=== PATIENT | female | born 1970 | race Caucasian/White ===

== ENCOUNTER → 2017-07-07 | Outpatient (CLI) | payer BC ==
--- NOTE | 2017-07-10 11:57 | MM ---
Reason for exam: screening (asymptomatic). Last mammogram was performed 1 year ago. History: Family history of breast cancer in maternal cousin. Took hormonal contraceptives for 5 years. Physical Findings: A clinical breast exam by your physician is recommended on an annual basis and results should be correlated with mammographic findings. MG Screening Mammo w CAD Bilateral CC and MLO view(s) were taken. Prior study comparison: June 24, 2016, bilateral MG screening mammo w CAD. June 23, 2015, bilateral MG screening mammo w CAD. There are scattered fibroglandular densities. Asymmetric breast tissue upper outer right breast is stable. No significant changes when compared with prior studies. ASSESSMENT: Benign, BI-RAD 2 RECOMMENDATION: Routine screening mammogram of both breasts in 1 year.
== END | disposition home or self-care (01) ==
LOC: RADMAMWWP 08:35
PROVIDERS: ATTEND Family Medicine
DX: Z12.31 Encounter for screening mammogram for malignant neoplasm of breast (principal)
CPT/HCPCS: 77067

== ENCOUNTER 2017-10-22 15:02 | Observation (INO) | payer BC ==
[2017-10-22] MEDS ORDERED: ASPIRIN 81 MG PO STA (15:27)
[2017-10-22] MEDS ORDERED: KETOROLAC 30 MG/ML 1 ML VIAL IVP STA (15:28)
--- NOTE | 2017-10-22 15:35 | ED ---
Chest Pain HPI - General Chief Complaint: Chest Pain Stated Complaint: Chest Pain Time Seen by Provider: 10/22/17 15:10 Source: patient, RN notes reviewed Mode of arrival: wheelchair Limitations: no limitations - History of Present Illness Initial Comments: This is a 47-year-old female who states she had the onset of chest pain yesterday. He states it increased morning she states goes across her chest and she feels like some tightness across her chest as well as into her neck 4-510 severity she is here worse with supine positioning better with upright positioning no fevers chills nausea vomiting sweats or other symptoms no cough or phlegm production. Patient is a nonsmoker. She does state there is a family history of heart disease but using a later age group. She additionally states there is a fullness in her ears. No other symptoms reported she does state that she was at a of a mother of one of her best friends. She also is going to be moving out of state MD Complaint: chest pain - Related Data Home Medications Medication Instructions Recorded Confirmed No Known Home Medications [No 06/29/15 10/22/17 Known Home Medications] Allergies Allergy/AdvReac Type Severity Reaction Status Date / Time No Known Allergies Allergy Verified 10/22/17 15:09 Review of Systems ROS Statement: Those systems with pertinent positive or pertinent negative responses have been documented in the HPI. ROS Other: All systems not noted in ROS Statement are negative. EKG Findings - EKG Results: EKG: interpreted by RUBENS, sinus rhythm (Sinus rhythm rate 70. Interval 144 QRS 90 QT since QTC 34/414 right axis no acute ST-T wave changes seen) Past Medical History Past Medical History: Hypertension Additional Past Medical History / Comment(s): Fractured fibula, History of Any Multi-Drug Resistant Organisms: None Reported Past Surgical History: No Surgical Hx Reported Additional Past Surgical History / Comment(s): Plate in left arm Past Anesthesia/Blood Transfusion Reactions: No Reported Reaction Past Psychological History: No Psychological Hx Reported Smoking Status: Never smoker Past Alcohol Use History: None Reported Past Drug Use History: None Reported General Exam - General Exam Comments Initial Comments: This is a well-developed well-nourished awake alert oriented 3 female Limitations: no limitations General appearance: alert, anxious Head exam: Present: atraumatic, normocephalic, normal inspection Eye exam: Present: normal appearance, PERRL, EOMI. Absent: scleral icterus, conjunctival injection, periorbital swelling ENT exam: Present: normal exam, mucous membranes moist Neck exam: Present: normal inspection. Absent: tenderness, meningismus, lymphadenopathy Respiratory exam: Present: normal lung sounds bilaterally. Absent: respiratory distress, wheezes, rales, rhonchi, stridor Cardiovascular Exam: Present: regular rate, normal rhythm, normal heart sounds. Absent: systolic murmur, diastolic murmur, rubs, gallop, clicks GI/Abdominal exam: Present: soft, normal bowel sounds. Absent: distended, tenderness, guarding, rebound, rigid Extremities exam: Present: normal inspection, full ROM, normal capillary refill. Absent: tenderness, pedal edema, joint swelling, calf tenderness Back exam: Present: normal inspection Neurological exam: Present: alert, oriented X3, CN II-XII intact Psychiatric exam: Present: normal affect, normal mood Skin exam: Present: warm, dry, intact, normal color. Absent: rash Course Vital Signs 10/22/17 10/22/17 15:06 16:04 Temperature 97.0 F L Pulse Rate 99 80 Respiratory 18 17 Rate Blood Pressure 146/83 127/81 O2 Sat by Pulse 100 98 Oximetry Chest Pain MDM - MDM Patient initially EKG and labs are within normal limits except for the elevated lipase. Patient does not drink alcohol has been on no new medications and has not been ill recently she still having recurrent episodes pain she'll be admitted for a cardiac workup. Disposition Clinical Impression: Chest pain, Unstable angina pectoris Disposition: ADMITTED IP TO THIS HOSP Condition: Stable Referrals: Anne Harley III, MD [Primary Care Provider] - 1-2 days
[2017-10-22 15:43] LABS: Basophils % (A) 0 %; Eosinophils # (A) 0.2 k/uL (0-0.7); Eosinophils % (A) 2 %; HCT 42.7 % (34.0-46.0); HGB 14.9 gm/dL (11.4-16.0); Lymphocytes # (A) 1.6 k/uL (1.0-4.8); Lymphocytes % (A) 15 %; MCH 30.3 pg (25.0-35.0); MCHC 34.9 g/dL (31.0-37.0); Mean Platelet Volume 8.3; Monocytes # (A) 0.5 k/uL (0-1.0); Monocytes % (A) 4 %; Neutrophils % (A) 77 %; Platelet Count 230 k/uL (150-450); RBC 4.91 m/uL (3.80-5.40); RDW 12.2 % (11.5-15.5); WBC 10.4 k/uL (3.8-10.6)
[2017-10-22 15:52] LABS: ALT 25 U/L (9-52); AST 16 U/L (14-36); Albumin 4.3 g/dL (3.5-5.0); Alkaline Phosphatase 68 U/L (38-126); Amylase 140 U/L (30-110); Anion Gap 14 mmol/L; Blood Urea Nitrogen 12 mg/dL (7-17); Calcium 10.1 mg/dL (8.4-10.2); Carbon Dioxide 23 mmol/L (22-30); Chloride 105 mmol/L (98-107); Glucose 100 mg/dL (74-99); Lipase 384 U/L (23-300); Magnesium 1.7 mg/dL (1.6-2.3); Sodium 142 mmol/L (137-145); Total Bilirubin 0.7 mg/dL (0.2-1.3); Total Protein 6.5 g/dL (6.3-8.2)
[2017-10-22 15:56] LABS: D-Dimer 0.21 mg/L FEU (<0.60); Partial Thromboplastin Time 22.7 sec (22.0-30.0); Prothrombin Time 10.2 sec (9.0-12.0)
--- NOTE | 2017-10-22 16:01 | XR ---
EXAMINATION TYPE: XR chest 2V DATE OF EXAM: 10/22/2017 COMPARISON: June 29, 2015 HISTORY: Chest pain for 2 days TECHNIQUE: Frontal and lateral views of the chest are obtained. FINDINGS: There is no focal air space opacity, pleural effusion, or pneumothorax seen. The cardiac silhouette size is within normal limits. The osseous structures are intact. IMPRESSION: No acute cardiopulmonary process.
[2017-10-22 16:03] LABS: Creatine Kinase 48 U/L (30-135)
[2017-10-22 16:13] LABS: Creatine Kinase MB 0.6 ng/mL (0.0-2.4)
[2017-10-22 16:17] LABS: Troponin I <0.012 ng/mL (0.000-0.034)
[2017-10-22] MEDS ORDERED: HEPARIN SODIUM,PORCINE 5,000 UNIT/ML 1 ML VIAL IV ONE (16:56)
[2017-10-22] MEDS ORDERED: NITROGLYCERIN SL TABS 0.4 MG TAB SUBLINGUAL PRN (16:56)
[2017-10-22] MEDS ORDERED: SODIUM CHLORIDE 0.9% 1,000 ML IV SCH (17:00)
[2017-10-22] MEDS ORDERED: HEPARIN SOD,PORK IN 0.45% NACL 25,000 UNIT in 0.45% NACL 1 500ML.BAG IV SCH (17:00)
[2017-10-22 19:03] VITALS: BMI 30.5
[2017-10-22] MEDS: NITROGLYCERIN OINT 1 INCH/GM PACKET TOPICAL SCH (21:31)
[2017-10-22] MEDS: ACETAMINOPHEN TAB 325 MG TAB PO PRN (21:37)
[2017-10-22 21:59] LABS: Creatine Kinase 42 U/L (30-135)
[2017-10-22 22:11] LABS: Creatine Kinase MB 0.4 ng/mL (0.0-2.4); Troponin I <0.012 ng/mL (0.000-0.034)
[2017-10-22] MEDS ORDERED: MELATONIN 3 MG TABLET PO SCH (23:30)
[2017-10-23] MEDS: NITROGLYCERIN OINT 1 INCH/GM PACKET TOPICAL SCH ×2 (00:04→05:25)
[2017-10-23 04:35] LABS: Creatine Kinase 36 U/L (30-135)
[2017-10-23 04:49] LABS: Creatine Kinase MB 0.4 ng/mL (0.0-2.4); Troponin I <0.012 ng/mL (0.000-0.034)
[2017-10-23 06:11] LABS: Basophils % (A) 0 %; Eosinophils # (A) 0.2 k/uL (0-0.7); Eosinophils % (A) 2 %; HCT 38.1 % (34.0-46.0); HGB 13.5 gm/dL (11.4-16.0); Lymphocytes # (A) 1.6 k/uL (1.0-4.8); Lymphocytes % (A) 22 %; MCH 31.3 pg (25.0-35.0); MCHC 35.4 g/dL (31.0-37.0); MCV 88.4 fL (80.0-100.0); Mean Platelet Volume 8.3; Monocytes # (A) 0.4 k/uL (0-1.0); Monocytes % (A) 5 %; Neutrophils # (A) 5.2 k/uL (1.3-7.7); Neutrophils % (A) 70 %; Platelet Count 182 k/uL (150-450); RDW 12.3 % (11.5-15.5); WBC 7.4 k/uL (3.8-10.6)
[2017-10-23 06:24] LABS: Glucose 99 mg/dL (74-99); Total Protein 5.5 g/dL (6.3-8.2)
[2017-10-23 06:35] LABS: ALT 17 U/L (9-52); AST 19 U/L (14-36); Albumin 3.4 g/dL (3.5-5.0); Alkaline Phosphatase 57 U/L (38-126); Amylase 87 U/L (30-110); Anion Gap 12 mmol/L; Blood Urea Nitrogen 12 mg/dL (7-17); Calcium 8.9 mg/dL (8.4-10.2); Carbon Dioxide 21 mmol/L (22-30); Chloride 108 mmol/L (98-107); Cholesterol 136 mg/dL (<200); HDL Cholesterol 61 mg/dL (40-60); LDL Cholesterol,Calculated 61 mg/dL (0-99); Lipase 179 U/L (23-300); Potassium 3.8 mmol/L (3.5-5.1); Sodium 141 mmol/L (137-145); Triglycerides 71 mg/dL (<150)
[2017-10-23 08:10] VITALS: RESP 16
[2017-10-23] MEDS ORDERED: ASPIRIN 325 MG TAB PO SCH (09:00)
[2017-10-23] MEDS ORDERED: ASPIRIN 81 MG PO SCH (09:05)
[2017-10-23] MEDS: ACETAMINOPHEN TAB 325 MG TAB PO PRN (10:12)
--- NOTE | 2017-10-23 12:30 | P.CRDCN ---
History of Present Illness Consult date: 10/23/17 History of present illness: Mrs. Potts is a pleasant 47-year-old female past medical history significant for hypertension while 9 years ago that has resolved. She denies history of coronary artery disease, dyslipidemia, diabetes mellitus or tobacco use. Her father had a bypass of 5-vessels in his early 60s. We have been asked to see her in consultation for chest pain. She states since Monday she has experienced multiple episodes of a squeezing sensation in the mid- sternal region that feels like something is grabbing her heart momentarily and letting do. She denies shortness of breath but feels as if she can't take a very deep breath. After the initial squeezing sensation subsides she gets a discomfort up into her neck on both sides radiating up into her head. She denies palpitations, nausea, vomiting, diaphoresis, dizziness or radiation to the arms, back or jaw. She states this has happened in the past and is typically related to a stressful event. This weekend was particularly stressful for her. EKG reveals sinus mechanism with non-specific ST abnormalities with T-wave inversions inferiorly. Telemetry tracings have been unremarkable. Chest xray is negative for an acute cardiopulmonary process. Laboratory data reviewed, hemoglobin 13.5, platelets 182, d-dimer 0.21, sodium 141, potassium 3.8, magnesium 1.7, creatinine 0.77, cardiac enzymes negative 3 , LDL 61, HDL 61. She takes no daily medications. Review of Systems At the time of my exam: CONSTITUTIONAL: Denies fever. Denies chills. EYES: Denies blurred vision. Denies vision changes. Denies eye pain. EARS, NOSE, MOUTH & THROAT: Denies headache. Denies sore throat. Denies ear pain. CARDIOVASCULAR: Denies chest pain. Denies shortness of breath. Denies orthopnea. Denies PND. Denies palpitations. RESPIRATORY: Denies cough. GASTROINTESTINAL: Denies abdominal pain. Denies diarrhea. Denies constipation. Denies nausea. Denies vomiting. MUSCULOSKELETAL: Denies myalgias. INTEGUMENTARY: Denies pruitis. Denies rash. NEUROLOGIC: Denies numbness. Denies tingling. Denies weakness. PSYCHIATRIC: Denies anxiety. Denies depression. ENDOCRINE: Denies fatigue. Denies weight change. Denies polydipsia. Denies polyurina. GENITOURINARY: Denies burning, hematuria or urgency with micturation. HEMATOLOGIC: Denies history of anemia. Denies bleeding. Past Medical History Past Medical History: Hypertension Additional Past Medical History / Comment(s): Fractured fibula, History of Any Multi-Drug Resistant Organisms: None Reported Past Surgical History: No Surgical Hx Reported Additional Past Surgical History / Comment(s): Plate in left arm and taken out. Past Anesthesia/Blood Transfusion Reactions: No Reported Reaction Past Psychological History: No Psychological Hx Reported Smoking Status: Never smoker Past Alcohol Use History: None Reported Past Drug Use History: None Reported Medications and Allergies Home Medications Medication Instructions Recorded Confirmed Type Qxahnei-Lbsg-Mvpn [id number] 1 tab PO Q4HR PRN 10/22/17 10/22/17 History [Excedrin] Ibuprofen [Motrin Ib] 400 mg PO Q6H PRN 10/22/17 10/22/17 History Allergies Allergy/AdvReac Type Severity Reaction Status Date / Time No Known Allergies Allergy Verified 10/22/17 17:33 Physical Exam Vitals: Vital Signs Temp Pulse Pulse Resp BP BP Pulse Ox 10/23/17 08:00 97.9 F 79 16 118/74 97 10/23/17 04:00 98.0 F 58 L 15 117/72 95 10/23/17 00:00 98.4 F 68 16 117/71 98 10/22/17 20:00 98.2 F 51 L 18 128/82 10/22/17 18:40 98.6 F 85 16 141/82 96 10/22/17 17:49 97.2 F L 78 17 143/90 100 10/22/17 16:04 80 17 127/81 98 10/22/17 15:06 97.0 F L 99 18 146/83 100 Intake and Output 10/22/17 10/23/17 10/23/17 22:59 06:59 14:59 Intake Total 118.548 Balance 118.548 Intake: Intake, IV Titration 118.548 Amount Heparin Sod,Pork in 0.45% 118.548 NaCl 25,000 unit In 0.45 % NaCl 1 500ml.bag @ 11.3 UNITS/KG/HR 19.98 mls/hr IV .Q24H [facility] Rx#: [id number] Other: Voiding Method Toilet Toilet # Voids 3 Weight 88.451 kg Blood pressure 117/72 heart rate 68 afebrile maintaining oxygen saturation on room air GENERAL: This is a 47-year-old female in no apparent distress at the time of my examination. HEENT: Head is atraumatic, normocephalic. Pupils are equal, round. Sclerae anicteric. Conjunctivae are clear. Mucous membranes of the mouth are moist. Neck is supple. There is no jugular venous distention. No carotid bruit is heard. LUNGS: Clear to auscultation no wheezes, rales or rhonchi. No chest wall tenderness is noted on palpation or with deep breathing. HEART: Regular rate and rhythm without murmurs, rubs or gallops. S1 and S2 heard. ABDOMEN: Soft, nontender. Bowel sounds are heard. No organomegaly noted. EXTREMITIES: No evidence of peripheral edema and no calf tenderness noted. VASCULAR: Radial and dorsalis pedis pulses palpated, no evidence of clubbing. NEUROLOGIC: Patient is awake, alert and oriented x3. Results 10/23/17 05:56 10/23/17 05:56 Cardiac Enzymes 10/22/17 10/22/17 10/22/17 Range/Units 15:33 15:33 21:11 AST 16 (14-36) U/L CK-MB (CK-2) 0.6 0.4 (0.0-2.4) ng/mL Troponin I <0.012 <0.012 (0.000-0.034) ng/mL 10/23/17 10/23/17 Range/Units 03:52 05:56 AST 19 (14-36) U/L CK-MB (CK-2) 0.4 (0.0-2.4) ng/mL Troponin I <0.012 (0.000-0.034) ng/mL Coagulation 10/22/17 10/22/17 10/23/17 Range/Units 15:33 22:58 05:56 PT 10.2 (9.0-12.0) sec APTT 22.7 43.3 H 50.1 H (22.0-30.0) sec Lipids 10/23/17 Range/Units 05:56 Triglycerides 71 (<150) mg/dL Cholesterol 136 (<200) mg/dL HDL Cholesterol 61 H (40-60) mg/dL CBC 10/22/17 10/23/17 Range/Units 15:33 05:56 WBC 10.4 7.4 (3.8-10.6) k/uL RBC 4.91 4.30 (3.80-5.40) m/uL Hgb 14.9 13.5 (11.4-16.0) gm/dL Hct 42.7 38.1 (34.0-46.0) % Plt Count 230 182 (150-450) k/uL Comprehensive Metabolic Panel 10/22/17 10/23/17 Range/Units 15:33 05:56 Sodium 142 141 (137-145) mmol/L Potassium 4.0 3.8 (3.5-5.1) mmol/L Chloride 105 108 H (98-107) mmol/L Carbon Dioxide 23 21 L (22-30) mmol/L BUN 12 12 (7-17) mg/dL Creatinine 0.81 0.77 (0.52-1.04) mg/dL Glucose 100 H 99 (74-99) mg/dL Calcium 10.1 8.9 (8.4-10.2) mg/dL AST 16 19 (14-36) U/L ALT 25 17 (9-52) U/L Alkaline Phosphatase 68 57 (38-126) U/L Total Protein 6.5 5.5 L (6.3-8.2) g/dL Albumin 4.3 3.4 L (3.5-5.0) g/dL Current Medications Generic Name Dose Route Start Last Admin Trade Name Freq PRN Reason Stop Dose Admin Acetaminophen 650 mg 10/22/17 21:31 10/22/17 21:37 Tylenol Tab PO 650 mg Q4HR PRN Administration Fever and/ or Mild Pain Aspirin 325 mg 10/23/17 09:00 Aspirin PO DAILY GREGG Heparin Sodium/Sodium Chloride 500 mls @ 19.98 mls/hr 10/22/17 17:00 23:41 25,000 unit/ Sodium Chloride IV 13.34 units/kg/hr .Q24H [facility] 23.6 mls/hr Protocol Titration 11.3 UNITS/KG/HR Sodium Chloride 1,000 mls @ 20 mls/hr 10/22/17 17:00 10/22/17 17:42 Saline 0.9% IV 20 mls/hr .Q24H [facility]GG Administration Melatonin 6 mg 10/22/17 23:30 10/23/17 00:02 Melatonin PO 6 mg HS GREGG Administration Nitroglycerin 1 inch 10/22/17 18:00 10/23/17 05:25 Nitro-Bid Oint TOPICAL Not Given Q6HR GREGG Nitroglycerin 0.4 mg 10/22/17 16:56 Nitrostat SUBLINGUAL Q5M PRN Chest Pain Intake and Output 10/22/17 10/23/17 10/23/17 22:59 06:59 14:59 Intake Total 118.548 Balance 118.548 Intake: Intake, IV Titration 118.548 Amount Heparin Sod,Pork in 0.45% 118.548 NaCl 25,000 unit In 0.45 % NaCl 1 500ml.bag @ 11.3 UNITS/KG/HR 19.98 mls/hr IV .Q24H [facility] Rx#: [id number] Other: Voiding Method Toilet Toilet # Voids 3 Weight 88.451 kg 10/23/17 05:56 10/23/17 05:56 Assessment and Plan Assessment: ASSESSMENT 1. Chest pain, atypical PLAN Discontinue heparin infusion and nitroglycerin. Obtain 2D echocardiogram and doppler study to assess cardiac structure and function. Perform stress echocardiogram to assess for stress induced cardiac ischemia. If stress test is normal she is stable from a cardiac perspective. Thank you kindly for this consultation. Nurse Practitioner note has been reviewed, I agree with a documented findings and plan of care. Patient was seen and examined.
[2017-10-23 12:39] VITALS: BP 117/82; PULSE 71; TEMP 98.1
--- NOTE | 2017-10-23 13:00 | P.DS ---
Providers Date of admission: 10/22/17 16:59 Attending physician: Rosy Hernández Consults: 10/22/17 16:56 Consult Physician Urgent Consulting Provider: Diallo Salmeron Consult Reason/Comments: Chest pain Do you want consulting provider notified?: Yes Primary care physician: [facility] Course: Mrs. Haynes is a 47-year-old female with a past medical history of hypertension coming in with a chief complaint of chest pain. Patient states the chest pain is 5 out of 10 on the left side of the chest with some radiation to the sternum. No associated nausea vomiting diaphoresis. Patient does not have any previous cardiac history. But patient states that she has been having this chest pain on and off and that she had a Holter monitor in the past. She said she didn't ever had a stress test done before. Patient does not have risk factors of family history or smoking. Patient also complains of some neck spasms and tightness that radiates up to the back of her head when she is under stress. She denies having any fever cough chills or rigors. No complaints of any abdominal pain nausea vomiting or diarrhea. She denies having any dysuria or hematuria. No history of recent travel. No history of recent surgeries. No history of starting her on any new medications. Patient denies having any orthopnea PND or lower extremity swelling. She states that her heart rate is usually in 50s to 60s. Today the heart monitor has been showing the heart rate between 90s to 100s but she denies having any palpitations. Patient does have history of disc protrusion in the past and she has numbness on her left lower extremity posterior side for the past 2 years. No acute changes. Patient had serial troponins and EKGs within normal limits. She was evaluated by cardiology services and had a stress test done this morning which has been within normal limits and she was cleared by cardiology to be discharged home. Discussed the results with the patient and she is stable to be discharged home. Suggested that she be off of ibuprofen which can cause some epigastric discomfort. Advised to follow up with her PCP in 2-3 days. DISCHARGE DIAGNOSIS Unstable angina hypertension Elevated amylase and lipase History of lumbar disc disease Patient Condition at Discharge: Stable Plan - Discharge Summary Discharge Rx Participant: Yes New Discharge Prescriptions: New Acetaminophen Tab [Tylenol] 650 mg PO Q4HR PRN tab PRN Reason: Fever and/ or Mild Pain Continue [id number]-Afga [id number] [Excedrin] 1 tab PO Q4HR PRN PRN Reason: Pain Discontinued Ibuprofen [Motrin Ib] 400 mg PO Q6H PRN PRN Reason: Pain Discharge Medication List [id number] [id number] [Excedrin] 1 tab PO Q4HR PRN 10/22/17 [History] Acetaminophen Tab [Tylenol] 650 mg PO Q4HR PRN tab 10/23/17 [Rx] Follow up Appointment(s)/Referral(s): Anne Harley III, MD [Primary Care Provider] - 1-2 days Discharge Disposition: HOME SELF-CARE
--- NOTE | 2017-10-24 00:08 | P.HPIM ---
History of Present Illness H&P Date: 10/22/17 Chief Complaint: Chest pain Mrs. Haynes is a 47-year-old female with a past medical history of hypertension coming in with a chief complaint of chest pain. Patient states the chest pain is 5 out of 10 on the left side of the chest with some radiation to the sternum. No associated nausea vomiting diaphoresis. Patient does not have any previous cardiac history. But patient states that she has been having this chest pain on and off and that she had a Holter monitor in the past. She said she didn't ever had a stress test done before. Patient does not have risk factors of family history or smoking. Patient also complains of some neck spasms and tightness that radiates up to the back of her head when she is under stress. She denies having any fever cough chills or rigors. No complaints of any abdominal pain nausea vomiting or diarrhea. She denies having any dysuria or hematuria. No history of recent travel. No history of recent surgeries. No history of starting her on any new medications. Patient denies having any orthopnea PND or lower extremity swelling. She states that her heart rate is usually in 50s to 60s. Today the heart monitor has been showing the heart rate between 90s to 100s but she denies having any palpitations. Patient does have history of disc protrusion in the past and she has numbness on her left lower extremity posterior side for the past 2 years. No acute changes. Review of Systems REVIEW OF SYSTEMS: PSYCH: Normal psychiatric exam NEURO:No c/o weakness of the extremties, No facial droop, No speech abnormalities. VASCULAR: Peripheral nervous system within the normal limits no edema HEMATOLOGIC: No history of easy bleeding and bruising . No recent infections . RESPIRATORY: No cough, No SOB, No chest discomfort. IMMUNE: No infections INTEGUMENT: no rashes OPHTHALMOLOGIC: No blurry vision and no eye discharge : No dysuria or hematuria BURNER TECHNICIAN: No bleeding PV CARDIAC: As per HPI MUSCULOSKELETAL : No Aches or pains in the joints or muscles. GI: No abdominal pain, Nausea or vomiting. No constipation or diarrhea. Past Medical History Past Medical History: Hypertension Additional Past Medical History / Comment(s): Fractured fibula, History of Any Multi-Drug Resistant Organisms: None Reported Past Surgical History: No Surgical Hx Reported Additional Past Surgical History / Comment(s): Plate in left arm Past Anesthesia/Blood Transfusion Reactions: No Reported Reaction Past Psychological History: No Psychological Hx Reported Smoking Status: Never smoker Past Alcohol Use History: None Reported Past Drug Use History: None Reported Medications and Allergies Home Medications Medication Instructions Recorded Confirmed Type Epveprx-Adqa-Omgo [id number] 1 tab PO Q4HR PRN 10/22/17 10/22/17 History [Excedrin] Ibuprofen [Motrin Ib] 400 mg PO Q6H PRN 10/22/17 10/22/17 History Allergies Allergy/AdvReac Type Severity Reaction Status Date / Time No Known Allergies Allergy Verified 10/22/17 17:33 Physical Exam Vitals: Vital Signs Temp Pulse Resp BP Pulse Ox 10/22/17 17:49 97.2 F L 78 17 143/90 100 10/22/17 16:04 80 17 127/81 98 10/22/17 15:06 97.0 F L 99 18 146/83 100 Intake and Output 10/22/17 10/22/17 10/22/17 06:59 14:59 22:59 Other: Weight 88.451 kg GENERAL EXAM GEN. APPEARANCE: alert, in no apparent distress HEAD EXAM: atraumatic, normocephalic, normal inspection EYE EXAM: normal appearance, PERRL, EOMI. Absent: scleral icterus, conjunctival injection, periorbital swelling ENT EXAM: normal exam, mucous membranes moist NECK EXAM: normal inspection. Absent: tenderness, meningismus, full ROM, lymphadenopathy RESPIRATORY EXAM: normal lung sounds bilaterally. Absent: respiratory distress , wheezes, rales, rhonchi, stridor CARDIOVASCULAR EXAM: regular rate, normal rhythm, normal heart sounds. Absent : systolic murmur, diastolic murmur, rubs, gallop, clicks GI/ABDOMINAL EXAM: soft, normal bowel sounds. Absent: distended, tenderness, guarding, rebound, rigid EXTREMITIES EXAM: normal inspection, full ROM, normal capillary refill. Absent : tenderness, pedal edema, joint swelling, calf tenderness BACK EXAM: normal inspection NEUROLOGICAL EXAM: alert, oriented X3, CN II-XII intact, motor sensory deficit PSYCHIATRIC EXAM: normal affect, normal mood SKIN EXAM: warm, dry, intact, normal color. Absent: rash Results CBC & Chem 7: 10/22/17 15:33 10/22/17 15:33 Labs: Abnormal Lab Results - Last 24 Hours (Table) 10/22/17 10/22/17 Range/Units 15:33 15:33 Neutrophils # 8.0 H (1.3-7.7) k/uL Glucose 100 H (74-99) mg/dL Amylase 140 H (30-110) U/L Lipase 384 H (23-300) U/L Assessment and Plan Plan: ASSESSMENT Unstable angina hypertension Elevated amylase and lipase - unclear etiology Plan: Patient will have serial troponins and EKGs. Patient has been started on IV heparin. We will keep the patient nothing by mouth as it is unclear why she has elevated amylase and lipase. She denies using any new medications and alcohol use. We will repeat the lytes for tomorrow morning. Cardiology services have been consulted. Will follow the patient closely.
--- NOTE | 2017-10-24 11:39 | EST ---
EXERCISE STRESS AGE: 47 SEX: F HT: 67" WT: 195 PROTOCOL: Stress Echo STAGE: III DURATION OF EXERCISE: 9:00 HEART RATE REST: 85 BLOOD PRESSURE REST: 108/68 MAXIMUM HEART RATE ACHIEVED: 170 MAXIMUM BLOOD PRESSURE: 175/76 85% MPHR: 148 100% MPHR: 174 METS: 10.5 INDICATIONS: Chest pain. CLINICAL INFORMATION: STRESS DATA: Pretesting physical examination showed a heart rate of 85, pressure is 108/68 mmHg. Baseline EKG showed sinus mechanism. The patient exercised on the treadmill on Primo protocol for a total of 9 minutes and achieved 10.5 METS with max heart rate was 170, which is about 97% of maximum predicted heart rate. Maximum blood pressure was 175/76 mmHg. Clinically, she did not have any symptoms of chest pain or discomfort. The EKG did not show any significant ST or T-wave abnormalities consistent with ischemia. ECHOCARDIOGRAM IMAGES: On echocardiogram images from parasternal long axis view, parasternal short axis view, apical 4 chambers, and apical 2 chamber view were obtained as the baseline images, at the peak of the heart rate as well as on recovery and the echocardiogram images showed good augmentation in the left ventricular systolic function without any evidence of wall motion abnormalities consistent with ischemia. CONCLUSION: 1. Excellent exercise capacity. 2. Normal EKG in response to exercise. 3. Normal echocardiogram in response to exercise. 4. Essentially normal stress echocardiogram for the patient. MMODL / IJN: [id number] /
--- NOTE | 2017-10-24 11:45 | ECHOF ---
Referral Reason:cp MEASUREMENTS -------- HEIGHT: 170.2 cm WEIGHT: 88.5 kg BP: IVSd: 1.0 cm (0.6 - 1.1) LVIDd: 4.1 cm (3.9 - 5.3) LVPWd: 1.3 cm (0.6 - 1.1) IVSs: 1.8 cm LVIDs: 2.6 cm LVPWs: 1.8 cm Ao Diam: 3.5 cm (2.0 - 3.7) AV Cusp: 2.2 cm (1.5 - 2.6) LA Diam: 2.6 cm (2.7 - 3.8) MV EXCURSION: 16.095 mm (> 18.000) MV EF SLOPE: 117 mm/s (70 - 150) EPSS: 0.7 cm MV E Antonio: 0.51 m/s MV DecT: 127 ms MV A Antonio: 0.60 m/s MV E/A Ratio: 0.85 RAP: 5.00 mmHg RVSP: 15.61 mmHg FINDINGS -------- Sinus rhythm. This was a technically good study. The left ventricular size is normal. There is borderline concentric left ventricular hypertrophy. Overall left ventricular systolic function is normal with, an EF between 55 - 60 %. The right ventricle is normal in size and function. The left atrium is normal in size. The right atrium is normal in size. The aortic valve is trileaflet, and appears structurally normal. No aortic stenosis or regurgitation. Mitral valve is thickened with myxomatous degeneration. Mild mitral regurgitation is present. Mild tricuspid regurgitation present. The right ventricular systolic pressure, as measured by Doppl er, is 15.61mmHg. Pulmonic valve appears structurally normal. The aortic root size is normal. Normal inferior vena cava with normal inspiratory collapse consistent with estimated right atrial pre ssure of 5 mmHg. The pericardium is normal. CONCLUSIONS -------- 1. Sinus rhythm. 2. This was a technically good study. 3. The left ventricular size is normal. 4. There is borderline concentric left ventricular hypertrophy. 5. Overall left ventricular systolic function is normal with, an EF between 55 - 60 %. 6. The right ventricle is normal in size and function. 7. The left atrium is normal in size. 8. The right atrium is normal in size. 9. The aortic valve is trileaflet, and appears structurally normal. No aortic stenosis or regurgitati on. 10. Mitral valve is thickened with myxomatous degeneration. 11. Mild mitral regurgitation is present. 12. Mild tricuspid regurgitation present. 13. The right ventricular systolic pressure, as measured by Doppler, is 15.61mmHg. 14. Pulmonic valve appears structurally normal. 15. The aortic root size is normal. 16. Normal inferior vena cava with normal inspiratory collapse consistent with estimated right atrial pressure of 5 mmHg. 17. The pericardium is normal. BUCKLE SORTER: Francheska Medina RDCS
== END 2017-10-23 13:51 | disposition home or self-care (01) ==
LOC: EC 15:02 → 3OBS 16:59
PROVIDERS: ADMIT Internal Medicine; ATTEND Internal Medicine
DX: I20.0 Unstable angina (principal); R25.2 Cramp and spasm; R74.8 Abnormal levels of other serum enzymes; M51.26 Other intervertebral disc displacement, lumbar region; Z82.49 Family history of ischemic heart disease and other diseases of the circulatory system
CPT/HCPCS: 99285; 96375 ×2; 96376 ×2; 96365 ×2; 96366 ×2; 36415; 93306; 93351; 85379; 83880; 80061; 80053 ×2; 82150 ×2; 82550 ×2; 82553 ×2; 83690 ×2; 83735; 84484 ×2; 85025 ×2; 85610; 85730 ×2; 71046; G0378 ×2; J1644 ×2; J1885